=== PATIENT | male | born 1970 | race Caucasian/White ===

== ENCOUNTER 2017-03-31 19:06 | Emergency (ER) | payer BC, OTHER ==
[~2017-03-31] VITALS: Ht 177.8 cm; Wt 113.4 kg
[2017-03-31 19:39] VITALS: BP 118/97
[2017-03-31 20:52] LABS: Basophils # (auto) 0 uL; Eosinophils # (auto) 0.1 uL; Eosinophils % (auto) 1.7 % (0.0-7.0); Nucleated Red Blood Cells % 0.1 %
[2017-03-31 20:54] LABS: Basophils % (auto) 0.5 % (0.0-2.0); Hematocrit 44.9 % (41.0-53.0); Hemoglobin 15.5 g/dL (13.5-17.5); Lymphocytes % (auto) 33.1 % (10.0-50.0); Mean Corpuscular Hemoglobin 34.8 pg (28.0-32.0); Mean Corpuscular Hgb Conc. 34.4 g/dL (32.0-36.0); Monocytes # (auto) 0.4 uL; Monocytes % (auto) 7.2 % (0.0-12.0); Neutrophils # (auto) 3.4 uL; Neutrophils % (auto) 57.5 % (37.0-80.0); Platelet Count (auto) 242 10^3/uL (140-450); Red Blood Cells 4.45 10^6/uL (4.5-5.90); Red Cell Distribution Width 13.2 % (11.8-14.3)
[2017-03-31 20:57] LABS: Albumin 3.8 g/dL (3.4-5.0); Calcium 8.7 mg/dL (8.5-10.1); Potassium 3.7 mmol/L (3.5-5.1)
[2017-03-31 20:59] LABS: Total Protein 8.1 g/dL (6.4-8.2)
== END 2017-04-01 05:25 | disposition left against medical advice (07) ==
LOC: ER 19:06
DX: M79.604 Pain in right leg (principal); Z53.21 Procedure and treatment not carried out due to patient leaving prior to being seen by health care provider
CPT/HCPCS: 36415; 80053; 85025; 93971

== ENCOUNTER 2017-04-03 10:40 | Emergency (ER) | payer BC, OTHER ==
[~2017-04-03] VITALS: Ht 177.8 cm; Wt 113.4 kg
[2017-04-03 11:03] VITALS: BP 121/92
[2017-04-03] MEDS ORDERED: cefTRIAXone SOD 1,000 MG VL IM ONE (11:45)
[2017-04-03] MEDS ORDERED: TETANUS-DIPTH-ACEL PERTUSSIS 0.5ML SYRG IM ONE (11:45)
[2017-04-03] MEDS ORDERED: LIDOCAINE 1% HCL (LOCAL ANESTH.) INJ 20ML MDV IJ ONE (11:45)
== END 2017-04-03 12:08 | disposition home or self-care (01) ==
LOC: ER 10:40
DX: L03.115 Cellulitis of right lower limb (principal); Z88.0 Allergy status to penicillin
CPT/HCPCS: 90471; 90715; 96372; 99284; J0696; J2001

== ENCOUNTER → 2017-12-13 | Outpatient (CLI) | payer BC ==
[2017-12-13 11:14] LABS: BUN/Creatinine Ratio 5.4; Bilirubin, Total 8.6 mg/dL (0.2-1.0); Calcium 8.3 mg/dL (8.5-10.1); Magnesium 1.7 mg/dL (1.6-2.6); Potassium 3.7 mmol/L (3.5-5.1); Total Protein 8.2 g/dL (6.4-8.2)
[2017-12-13 11:21] LABS: Folate (Folic Acid) 9.45 ng/mL (5.38-24)
[2017-12-14 10:22] LABS: Hepatitis A Ab IgM Negative; Hepatitis B Core IgM Negative
[2017-12-14 10:23] LABS: Hepatitis B Surface Antigen Negative (Negative); Hepatitis C Antibody Negative (Negative)
== END | disposition home or self-care (01) ==
LOC: LAB 10:21
PROVIDERS: ATTEND Internal Medicine
DX: F10.10 Alcohol abuse, uncomplicated (principal); F41.9 Anxiety disorder, unspecified; Z68.36 Body mass index [BMI] 36.0-36.9, adult
CPT/HCPCS: 36415; 80053; 80061; 80074; 82607; 82746; 83036; 83735; 84403; 84443

== ENCOUNTER → 2017-12-21 | Outpatient (CLI) | payer BC ==
[2017-12-21 12:06] LABS: Basophils # (auto) 0 uL; Eosinophils # (auto) 0.1 uL; Lymphocytes # (auto) 0.7 uL; Monocytes # (auto) 0.5 uL; Neutrophils # (auto) 4.7 uL; Red Blood Cells 3.27 10^6/uL (4.5-5.90)
[2017-12-21 12:08] LABS: Basophils % (auto) 0.2 % (0.0-2.0); Hematocrit 35.1 % (41.0-53.0); Hemoglobin 11.8 g/dL (13.5-17.5); Lymphocytes % (auto) 12.5 % (10.0-50.0); Mean Corpuscular Hemoglobin 36.1 pg (28.0-32.0); Mean Corpuscular Hgb Conc. 33.7 g/dL (32.0-36.0); Mean Corpuscular Volume 107.1 fL (80.0-100.0); Monocytes % (auto) 8.2 % (0.0-12.0); Neutrophils % (auto) 78.1 % (37.0-80.0); Nucleated Red Blood Cells % 0.2 %; Platelet Count (auto) 156 10^3/uL (140-450); Red Cell Distribution Width 16.5 % (11.8-14.3)
[2017-12-21 12:15] LABS: INR 1.3 (0.9-1.15); Partial Thromboplastin Time 32.2 sec (23.78-33.04); Prothrombin Time 13.7 sec (9.27-12.13)
[2017-12-21 13:14] LABS: Albumin 2.8 g/dL (3.4-5.0); BUN/Creatinine Ratio 6.3; Bilirubin, Total 12.3 mg/dL (0.2-1.0); Potassium 3.7 mmol/L (3.5-5.1); Total Protein 8.3 g/dL (6.4-8.2)
== END | disposition home or self-care (01) ==
LOC: LAB 11:00
PROVIDERS: ATTEND Internal Medicine
DX: F10.10 Alcohol abuse, uncomplicated (principal)
CPT/HCPCS: 36415; 80053; 85025; 85610; 85730

== ENCOUNTER 2018-01-26 11:11 | Inpatient (IN) | payer BC, OTHER ==
[~2018-01-26] VITALS: Ht 177.8 cm; Wt 117.0 kg
[2018-01-26 12:33] LABS: Eosinophils # (auto) 0.1 uL; Hematocrit 26.1 % (41.0-53.0); Hemoglobin 9.1 g/dL (13.5-17.5); Red Blood Cells 2.34 10^6/uL (4.5-5.90); Red Cell Distribution Width 19.4 % (11.8-14.3)
[2018-01-26 12:36] LABS: Basophils # (auto) 0.1 uL; Basophils % (auto) 0.6 % (0.0-2.0); Eosinophils % (auto) 0.5 % (0.0-7.0); Lymphocytes # (auto) 0.7 uL; Lymphocytes % (auto) 4.3 % (10.0-50.0); Mean Corpuscular Hemoglobin 38.7 pg (28.0-32.0); Mean Corpuscular Hgb Conc. 34.6 g/dL (32.0-36.0); Mean Corpuscular Volume 111.6 fL (80.0-100.0); Monocytes # (auto) 1.5 uL; Monocytes % (auto) 9.7 % (0.0-12.0); Neutrophils % (auto) 84.9 % (37.0-80.0); Platelet Count (auto) 171 10^3/uL (140-450); White Blood Cell 15.4 10^3/uL (4.4-10.8)
[2018-01-26 12:40] LABS: INR 1.62 (0.9-1.15); Partial Thromboplastin Time 35.5 sec (23.78-33.04); Prothrombin Time 16.9 sec (9.27-12.13)
[2018-01-26 13:19] LABS: Albumin 2.2 g/dL (3.4-5.0); Anion Gap 16 (5-15); Blood Urea Nitrogen 44 mg/dL (7-18); Calcium 7.9 mg/dL (8.5-10.1); Carbon Dioxide 20 mmol/L (21-32); Chloride 84 mmol/L (98-107); Glucose 144 mg/dL (74-106); Lipase 469 U/L (73-393); Magnesium 2.4 mg/dL (1.6-2.6); Sodium 120 mmol/L (136-145)
[2018-01-26 13:27] LABS: Potassium 2.9 mmol/L (3.5-5.1)
[2018-01-26 13:34] LABS: Alanine Aminotransferase 62 U/L (16-61); Alkaline Phosphatase 119 U/L (45-117); Amylase 33 U/L (25-115); Aspartate Aminotransferase 144 U/L (15-37); BUN/Creatinine Ratio 9.8; Blood Alcohol < 3.0 mg/dL (0-5); GFR African American 18 mL/min; GFR Non-African American 15 mL/min
[2018-01-26 13:36] LABS: Total Protein 6.6 g/dL (6.4-8.2)
[2018-01-26 13:37] LABS: Bilirubin, Total 35.5 mg/dL (0.2-1.0)
[2018-01-26] MEDS ORDERED: SODIUM CHLORIDE 0.9% 1,000 ML IV SCH (13:42)
[2018-01-26] MEDS ORDERED: ONDANSETRON HCL 4 MG/2 ML VIAL IV PRN (13:45)
[2018-01-26] MEDS ORDERED: THIAMINE 100mg/ml INJ (200mg/2ml VIAL) IV ONE (13:45)
[2018-01-26] MEDS ORDERED: LACTULOSE 20Gm/30ML SOLN PO PRN (13:45)
[2018-01-26] MEDS ORDERED: POTASSIUM EFFERVESENT TAB 25 MEQ PO ONE (13:45)
[2018-01-26] MEDS ORDERED: LACTULOSE 20Gm/30ML SOLN PO ONE (13:45)
[2018-01-26] MEDS ORDERED: PANTOPRAZOLE 40 MG/10 ML VIAL IV ONE (13:45)
[2018-01-26] MEDS ORDERED: NITROGLYCERIN 0.4 MG SL TAB SL PRN (13:45)
[2018-01-26] MEDS ORDERED: MORPHINE SULFATE 4 MG/ML SYR/VIAL IV PRN ×3 (13:45)
[2018-01-26] MEDS ORDERED: cefTRIAXone 1GM/50ML D5W 50 ML IV ONE (13:45)
[2018-01-26] MEDS ORDERED: chlordiazePOXIDE HCL 25 MG CAP PO PRN ×2 (13:45→15:00)
[2018-01-26] MEDS ORDERED: LORazepam 0.5 MG TAB PO PRN (13:45)
[2018-01-26] MEDS ORDERED: TEMAZEPAM 15 MG CAP PO PRN (13:45)
[2018-01-26 15:30] VITALS: BP 99/56
[2018-01-26] MEDS: PHYTONADIONE ORAL Susp 10 mg/10ml PO SCH (16:01)
[2018-01-26] MEDS: POTASSIUM CHL 20MEQ/100ML 100 ML IV SCH ×2 (16:01→18:50)
[2018-01-26] MEDS: LACTULOSE 20Gm/30ML SOLN PO SCH ×2 (17:19→23:56)
[2018-01-26] MEDS: chlordiazePOXIDE HCL 5 MG CAP PO SCH ×2 (17:20→23:56)
[2018-01-26 17:55] VITALS: BP 99/56
[2018-01-26 18:13] LABS: Hemoglobin 8.8 g/dL (13.5-17.5)
[2018-01-26] MEDS: metroNIDAZOLE 500MG/100ML 100 ML IV SCH ×2 (19:54→21:00)
[2018-01-26] MEDS: LORazepam 0.5 MG TAB PO PRN (20:03)
[2018-01-26] MEDS: PANTOPRAZOLE 40 MG TAB PO SCH (21:37)
[2018-01-26 21:46] VITALS: BP 103/60
[2018-01-26 22:27] LABS: Urine Bacteria FEW /hpf (None Seen); Urine Blood Negative /uL (Negative); Urine Hyaline Cast FEW /lpf (0 - 2); Urine Mucus FEW (None Seen); Urine Specific Gravity 1.016 (1.001-1.035); Urine WBC 2 /hpf (0 - 3)
[2018-01-26 22:33] LABS: Creatinine, Urine 249 mg/dL (30.0-125.0); Sodium Urine 6 mmol/L (40-220)
[2018-01-27] VITALS (7 sets, daily range): BP systolic 91–138; BP diastolic 38–81
[2018-01-27 00:37] LABS: Hemoglobin 8.3 g/dL (13.5-17.5)
[2018-01-27] MEDS: LACTULOSE 20Gm/30ML SOLN PO SCH ×7 (02:26→22:00)
[2018-01-27] MEDS: metroNIDAZOLE 500MG/100ML 100 ML IV SCH ×4 (02:27→21:10)
[2018-01-27 05:22] LABS: Basophils # (auto) 0.1 uL; Basophils % (auto) 0.5 % (0.0-2.0); Eosinophils # (auto) 0.1 uL; Eosinophils % (auto) 0.7 % (0.0-7.0); Hematocrit 23.6 % (41.0-53.0); Hemoglobin 8.5 g/dL (13.5-17.5); Lymphocytes # (auto) 0.6 uL; Lymphocytes % (auto) 4.8 % (10.0-50.0); Mean Corpuscular Hemoglobin 39.8 pg (28.0-32.0); Mean Corpuscular Volume 110.6 fL (80.0-100.0); Monocytes # (auto) 1.1 uL; Neutrophils # (auto) 10.5 uL; Platelet Count (auto) 139 10^3/uL (140-450); Red Blood Cells 2.14 10^6/uL (4.5-5.90); Red Cell Distribution Width 19.1 % (11.8-14.3); White Blood Cell 12.3 10^3/uL (4.4-10.8)
[2018-01-27 05:34] LABS: INR 1.64 (0.9-1.15); Partial Thromboplastin Time 35.4 sec (23.78-33.04); Prothrombin Time 17.1 sec (9.27-12.13)
[2018-01-27 05:47] LABS: Alanine Aminotransferase 57 U/L (16-61); Anion Gap 13 (5-15); Aspartate Aminotransferase 128 U/L (15-37); Blood Urea Nitrogen 51 mg/dL (7-18); Calcium 7.8 mg/dL (8.5-10.1); Carbon Dioxide 19 mmol/L (21-32); Chloride 90 mmol/L (98-107); Glucose 133 mg/dL (74-106); Lipase 338 U/L (73-393); Potassium 3.2 mmol/L (3.5-5.1); Sodium 122 mmol/L (136-145)
[2018-01-27 06:00] LABS: Alkaline Phosphatase 104 U/L (45-117); Amylase 28 U/L (25-115); BUN/Creatinine Ratio 10.8; Bilirubin, Total 30.8 mg/dL (0.2-1.0); Cholesterol < 50 mg/dL (< 200); GFR African American 17 mL/min; GFR Non-African American 14 mL/min; HDL Cholesterol 12 mg/dL (40-59); LDL Cholesterol 66 mg/dL (< 100); Triglycerides 259 mg/dL (< 150)
[2018-01-27 06:03] LABS: Total Protein 6.4 g/dL (6.4-8.2)
[2018-01-27] MEDS: chlordiazePOXIDE HCL 5 MG CAP PO SCH ×4 (06:16→22:37)
[2018-01-27] MEDS: cefTRIAXone 1GM/50ML D5W 50 ML IV SCH (09:19)
[2018-01-27] MEDS: THIAMINE 100mg/ml INJ (200mg/2ml VIAL) IV SCH (09:20)
[2018-01-27] MEDS: PANTOPRAZOLE 40 MG TAB PO SCH ×2 (09:21→22:37)
[2018-01-27] MEDS: PHYTONADIONE ORAL Susp 10 mg/10ml PO SCH (09:21)
[2018-01-27] MEDS ORDERED: PANTOPRAZOLE 40 MG TAB PO SCH (10:00)
[2018-01-27] MEDS ORDERED: POTASSIUM EFFERVESENT TAB 25 MEQ PO ONE (10:30)
[2018-01-27] MEDS: ALBUMIN 25% 100 ML IV SCH ×2 (10:42→18:01)
[2018-01-27] MEDS: SODIUM BICARBONATE 650 MG TAB PO SCH ×2 (11:22→22:36)
[2018-01-27] MEDS: MIDODRINE HCL 10 MG TAB PO SCH ×2 (11:23→18:01)
[2018-01-27] MEDS: FOLIC ACID 1 MG in D5W 5% 50 ML IV SCH (12:09)
[2018-01-27] MEDS: MULTIPLE VITAMINS W/ MINERALS TAB PO SCH (12:09)
[2018-01-27] MEDS: NIACIN 100 MG TAB PO SCH (12:09)
[2018-01-27 19:03] LABS: Calcium 7.6 mg/dL (8.5-10.1); Potassium 3.5 mmol/L (3.5-5.1)
[2018-01-27] MEDS: LORazepam 0.5 MG TAB PO PRN (21:10)
[2018-01-28] VITALS (13 sets, daily range): BP systolic 87–110; BP diastolic 45–67
[2018-01-28] MEDS: LACTULOSE 20Gm/30ML SOLN PO SCH ×6 (02:00→22:00)
[2018-01-28] MEDS: ALBUMIN 25% 100 ML IV SCH ×3 (02:29→20:48)
[2018-01-28] MEDS: metroNIDAZOLE 500MG/100ML 100 ML IV SCH ×4 (02:36→20:56)
[2018-01-28] MEDS: chlordiazePOXIDE HCL 5 MG CAP PO SCH ×4 (05:31→22:04)
[2018-01-28] MEDS: MIDODRINE HCL 10 MG TAB PO SCH ×3 (05:31→17:48)
[2018-01-28 06:15] LABS: Basophils # (auto) 0.1 uL; Hemoglobin 7.4 g/dL (13.5-17.5); Monocytes # (auto) 1.3 uL; Neutrophils % (auto) 79.8 % (37.0-80.0); Nucleated Red Blood Cells % 0.1 %
[2018-01-28 06:17] LABS: Basophils % (auto) 0.7 % (0.0-2.0); Eosinophils # (auto) 0.2 uL; Eosinophils % (auto) 1.7 % (0.0-7.0); Hematocrit 20.5 % (41.0-53.0); Lymphocytes % (auto) 7.7 % (10.0-50.0); Mean Corpuscular Hemoglobin 40.4 pg (28.0-32.0); Mean Corpuscular Hgb Conc. 35.9 g/dL (32.0-36.0); Mean Corpuscular Volume 112.3 fL (80.0-100.0); Monocytes % (auto) 10.1 % (0.0-12.0); Neutrophils # (auto) 9.9 uL; Platelet Count (auto) 133 10^3/uL (140-450); Red Blood Cells 1.83 10^6/uL (4.5-5.90); Red Cell Distribution Width 19.1 % (11.8-14.3); White Blood Cell 12.5 10^3/uL (4.4-10.8)
[2018-01-28 06:21] LABS: Albumin 2.6 g/dL (3.4-5.0); Calcium 7.8 mg/dL (8.5-10.1); Magnesium 2.5 mg/dL (1.6-2.6); Potassium 3.2 mmol/L (3.5-5.1)
[2018-01-28 06:38] LABS: BUN/Creatinine Ratio 11.7; Bilirubin, Total 32.6 mg/dL (0.2-1.0)
[2018-01-28 06:42] LABS: Total Protein 6.4 g/dL (6.4-8.2)
[2018-01-28] MEDS: THIAMINE 100mg/ml INJ (200mg/2ml VIAL) IV SCH (09:40)
[2018-01-28] MEDS: MULTIPLE VITAMINS W/ MINERALS TAB PO SCH (09:41)
[2018-01-28] MEDS: SODIUM BICARBONATE 650 MG TAB PO SCH ×2 (09:41→22:04)
[2018-01-28] MEDS: PANTOPRAZOLE 40 MG TAB PO SCH ×2 (09:41→22:04)
[2018-01-28] MEDS: FOLIC ACID 1 MG in D5W 5% 50 ML IV SCH (09:41)
[2018-01-28] MEDS: NIACIN 100 MG TAB PO SCH (09:41)
[2018-01-28] MEDS: PHYTONADIONE ORAL Susp 10 mg/10ml PO SCH (09:41)
[2018-01-28] MEDS: cefTRIAXone 1GM/50ML D5W 50 ML IV SCH (09:42)
[2018-01-28] MEDS ORDERED: GOLYTELY 4L KIT PO ONE (12:00)
[2018-01-28] MEDS: POTASSIUM CHL 20MEQ/100ML 100 ML IV SCH ×2 (15:45→18:04)
[2018-01-28] MEDS: OCTREOTIDE ACETATE 100 MCG/ML VL SUBCUT SCH ×2 (15:46→22:04)
[2018-01-29] VITALS (19 sets, daily range): BP systolic 85–125; BP diastolic 43–63
[2018-01-29] MEDS: LACTULOSE 20Gm/30ML SOLN PO SCH ×6 (02:00→21:46)
[2018-01-29] MEDS: metroNIDAZOLE 500MG/100ML 100 ML IV SCH ×4 (02:58→20:43)
[2018-01-29] MEDS: ALBUMIN 25% 100 ML IV SCH (04:32)
[2018-01-29] MEDS ORDERED: GOLYTELY 4L KIT PO ONE (05:00)
[2018-01-29] MEDS: chlordiazePOXIDE HCL 5 MG CAP PO SCH ×4 (05:46→21:46)
[2018-01-29] MEDS: MIDODRINE HCL 10 MG TAB PO SCH ×4 (05:46→18:38)
[2018-01-29] MEDS: OCTREOTIDE ACETATE 100 MCG/ML VL SUBCUT SCH ×3 (05:47→22:26)
[2018-01-29 06:33] LABS: Basophils # (auto) 0.2 uL; Neutrophils # (auto) 10.5 uL; Nucleated Red Blood Cells % 0.1 %; Red Blood Cells 1.77 10^6/uL (4.5-5.90); White Blood Cell 13.2 10^3/uL (4.4-10.8)
[2018-01-29 06:34] LABS: Basophils % (auto) 1.7 % (0.0-2.0); Eosinophils # (auto) 0.3 uL; Eosinophils % (auto) 2.1 % (0.0-7.0); Lymphocytes % (auto) 7.7 % (10.0-50.0); Mean Corpuscular Hemoglobin 39.9 pg (28.0-32.0); Mean Corpuscular Hgb Conc. 35.2 g/dL (32.0-36.0); Mean Corpuscular Volume 113.3 fL (80.0-100.0); Monocytes # (auto) 1.2 uL; Monocytes % (auto) 8.8 % (0.0-12.0); Neutrophils % (auto) 79.7 % (37.0-80.0); Platelet Count (auto) 123 10^3/uL (140-450); Red Cell Distribution Width 19.7 % (11.8-14.3)
[2018-01-29 06:38] LABS: INR 1.69 (0.9-1.15); Prothrombin Time 17.6 sec (9.27-12.13)
[2018-01-29 06:43] LABS: Potassium 3.4 mmol/L (3.5-5.1)
[2018-01-29 06:47] LABS: BUN/Creatinine Ratio 10.4; Calcium 7.7 mg/dL (8.5-10.1)
[2018-01-29] MEDS ORDERED: SODIUM CHLORIDE LOCK 10 ML ONE (08:24)
[2018-01-29] MEDS ORDERED: MIDAZOLAM HCL 5 MG/ML-1ML VIAL ONE (08:24)
[2018-01-29] MEDS ORDERED: fentaNYL CITRATE 100 MCG/2 ML VL ONE ×2 (08:24→16:04)
[2018-01-29] MEDS ORDERED: LIDOCAINE VISCOUS 2% 15ML UD ONE (08:24)
[2018-01-29] MEDS ORDERED: diphenhdrAMINE 50mg/ml (500mg/10ml VIAL) ONE (08:24)
[2018-01-29] MEDS ORDERED: ACETAMINOPHEN 500 MG TAB PO ONE (09:45)
[2018-01-29] MEDS ORDERED: FUROSEMIDE 20 MG/2 ML VIAL IV ONE (10:15)
[2018-01-29] MEDS ORDERED: POTASSIUM CHL 20 Meq TABLET PO ONE (10:15)
[2018-01-29] MEDS: NIACIN 100 MG TAB PO SCH (11:09)
[2018-01-29] MEDS: cefTRIAXone 1GM/50ML D5W 50 ML IV SCH (11:09)
[2018-01-29] MEDS: PANTOPRAZOLE 40 MG TAB PO SCH (11:09)
[2018-01-29] MEDS: SODIUM BICARBONATE 650 MG TAB PO SCH ×2 (11:09→21:46)
[2018-01-29] MEDS: THIAMINE 100mg/ml INJ (200mg/2ml VIAL) IV SCH (11:10)
[2018-01-29] MEDS: MULTIPLE VITAMINS W/ MINERALS TAB PO SCH (11:10)
[2018-01-29] MEDS: PHYTONADIONE ORAL Susp 10 mg/10ml PO SCH (11:15)
[2018-01-29] MEDS: FOLIC ACID 1 MG in D5W 5% 50 ML IV SCH (11:22)
[2018-01-29 12:49] LABS: Hepatitis A Ab IgM Negative; Hepatitis B Surface Antigen Negative (Negative); Hepatitis C Antibody Negative (Negative)
[2018-01-29] MEDS ORDERED: MORPHINE SULFATE 4 MG/ML SYR/VIAL IV PRN ×3 (13:15)
[2018-01-29 14:22] LABS: Bilirubin, Direct 26.8 mg/dL (0-0.2)
[2018-01-29 14:31] LABS: Bilirubin, Total 33.7 mg/dL (0.2-1.0)
[2018-01-29] MEDS ORDERED: MIDAZOLAM HCL 1MG/1ML-2 ML VIAL ONE (16:04)
[2018-01-29] MEDS ORDERED: LIDOCAINE 2%HCL (LOCAL ANESTH.) INJ 20ML MDV ONE (16:04)
[2018-01-29] MEDS ORDERED: HEPARIN SODIUM (PORCINE) 5000 UNITS/ML 1ML VIAL ONE (16:46)
[2018-01-29] MEDS: PANTOPRAZOLE 40 MG/10 ML VIAL IV SCH (21:46)
[2018-01-29] MEDS ORDERED: OCTREOTIDE ACETATE 100 MCG/ML VL ONE (22:22)
[2018-01-30] VITALS (61 sets, daily range): BP systolic 85–134; BP diastolic 39–97
[2018-01-30] MEDS: LACTULOSE 20Gm/30ML SOLN PO SCH ×6 (02:00→22:01)
[2018-01-30] MEDS: metroNIDAZOLE 500MG/100ML 100 ML IV SCH ×4 (03:06→21:38)
[2018-01-30 05:09] LABS: Basophils # (auto) 0.1 uL; Eosinophils # (auto) 0.2 uL; Lymphocytes # (auto) 0.8 uL; Nucleated Red Blood Cells % 0.1 %
[2018-01-30 05:12] LABS: Basophils % (auto) 0.7 % (0.0-2.0); Eosinophils % (auto) 1.3 % (0.0-7.0); Hematocrit 23.3 % (41.0-53.0); Hemoglobin 8.3 g/dL (13.5-17.5); Lymphocytes % (auto) 5.6 % (10.0-50.0); Mean Corpuscular Hemoglobin 37.5 pg (28.0-32.0); Mean Corpuscular Hgb Conc. 35.4 g/dL (32.0-36.0); Mean Corpuscular Volume 106.1 fL (80.0-100.0); Monocytes # (auto) 1.3 uL; Monocytes % (auto) 8.8 % (0.0-12.0); Neutrophils # (auto) 12.1 uL; Neutrophils % (auto) 83.6 % (37.0-80.0); White Blood Cell 14.4 10^3/uL (4.4-10.8)
[2018-01-30 05:19] LABS: Platelet Count (auto) 116 10^3/uL (140-450); Red Cell Distribution Width 24.8 % (11.8-14.3)
[2018-01-30 05:21] LABS: INR 1.77 (0.9-1.15); Prothrombin Time 18.3 sec (9.27-12.13)
[2018-01-30 05:28] LABS: Albumin 2.9 g/dL (3.4-5.0); Calcium 7.4 mg/dL (8.5-10.1); Potassium 3.5 mmol/L (3.5-5.1)
[2018-01-30 05:33] LABS: BUN/Creatinine Ratio 10.3
[2018-01-30] MEDS ORDERED: OCTREOTIDE ACETATE 100 MCG/ML VL ONE (05:34)
[2018-01-30 05:42] LABS: Bilirubin, Total 33.5 mg/dL (0.2-1.0)
[2018-01-30] MEDS: OCTREOTIDE ACETATE 100 MCG/ML VL SUBCUT SCH ×3 (06:01→22:01)
[2018-01-30] MEDS: MIDODRINE HCL 10 MG TAB PO SCH ×3 (06:01→17:53)
[2018-01-30] MEDS: chlordiazePOXIDE HCL 5 MG CAP PO SCH ×4 (06:01→22:01)
[2018-01-30 06:18] LABS: Total Protein 6.6 g/dL (6.4-8.2)
[2018-01-30] MEDS ORDERED: NOREPINEPHRINE 8 MG/250ML KIT 250 ML IV ONE (09:18)
[2018-01-30] MEDS: NOREPINEPHRINE 8 MG/250ML KIT 250 ML IV SCH (09:39)
[2018-01-30] MEDS: NIACIN 100 MG TAB PO SCH (09:40)
[2018-01-30] MEDS: MULTIPLE VITAMINS W/ MINERALS TAB PO SCH ×2 (09:40→12:45)
[2018-01-30] MEDS: SODIUM BICARBONATE 650 MG TAB PO SCH ×2 (09:40→22:01)
[2018-01-30] MEDS: PHYTONADIONE ORAL Susp 10 mg/10ml PO SCH (09:41)
[2018-01-30] MEDS ORDERED: SODIUM CHL 0.9% 1000 ML BAG XX ONE (10:45)
[2018-01-30] MEDS ORDERED: EPOETIN ALFA 10,000 UNIT/1 ML VIAL IV ONE (10:45)
[2018-01-30] MEDS: THIAMINE 100mg/ml INJ (200mg/2ml VIAL) IV SCH (12:38)
[2018-01-30] MEDS: PANTOPRAZOLE 40 MG/10 ML VIAL IV SCH ×2 (12:38→22:01)
[2018-01-30] MEDS: cefTRIAXone 1GM/50ML D5W 50 ML IV SCH (12:41)
[2018-01-30] MEDS: FOLIC ACID 1 MG in D5W 5% 50 ML IV SCH (13:36)
[2018-01-30] MEDS: LORazepam 0.5 MG TAB PO PRN (15:20)
[2018-01-31] VITALS (82 sets, daily range): BP systolic 85–121; BP diastolic 36–62
[2018-01-31] MEDS: metroNIDAZOLE 500MG/100ML 100 ML IV SCH ×4 (02:31→21:06)
[2018-01-31] MEDS: LACTULOSE 20Gm/30ML SOLN PO SCH ×5 (02:31→22:02)
[2018-01-31 04:03] LABS: Basophils # (auto) 0.2 uL; Basophils % (auto) 0.9 % (0.0-2.0); Eosinophils # (auto) 0.1 uL; Eosinophils % (auto) 0.9 % (0.0-7.0); Hematocrit 23.5 % (41.0-53.0); Hemoglobin 8.2 g/dL (13.5-17.5); Lymphocytes # (auto) 1.1 uL; Lymphocytes % (auto) 6.3 % (10.0-50.0); Mean Corpuscular Hemoglobin 37.2 pg (28.0-32.0); Mean Corpuscular Hgb Conc. 34.7 g/dL (32.0-36.0); Mean Corpuscular Volume 107.2 fL (80.0-100.0); Monocytes # (auto) 1.6 uL; Monocytes % (auto) 9.6 % (0.0-12.0); Neutrophils # (auto) 14.1 uL; Neutrophils % (auto) 82.3 % (37.0-80.0); Nucleated Red Blood Cells % 0.1 %; Platelet Count (auto) 83 10^3/uL (140-450); Red Blood Cells 2.19 10^6/uL (4.5-5.90); White Blood Cell 17.1 10^3/uL (4.4-10.8)
[2018-01-31 04:21] LABS: BUN/Creatinine Ratio 9.9; Potassium 3.5 mmol/L (3.5-5.1)
[2018-01-31 04:22] LABS: Albumin 2.7 g/dL (3.4-5.0); Bilirubin, Total 30.9 mg/dL (0.2-1.0); Calcium 7.5 mg/dL (8.5-10.1); Total Protein 6.4 g/dL (6.4-8.2)
[2018-01-31 04:29] LABS: Red Cell Distribution Width 25.7 % (11.8-14.3)
[2018-01-31] MEDS: chlordiazePOXIDE HCL 5 MG CAP PO SCH ×4 (06:16→22:02)
[2018-01-31] MEDS: OCTREOTIDE ACETATE 100 MCG/ML VL SUBCUT SCH ×3 (06:16→22:03)
[2018-01-31] MEDS: MIDODRINE HCL 10 MG TAB PO SCH ×3 (06:17→18:22)
[2018-01-31] MEDS ORDERED: SODIUM CHL 0.9% 1000 ML BAG XX ONE (07:30)
[2018-01-31] MEDS: cefTRIAXone 1GM/50ML D5W 50 ML IV SCH (09:22)
[2018-01-31] MEDS: NOREPINEPHRINE 8 MG/250ML KIT 250 ML IV SCH (09:30)
[2018-01-31] MEDS: NIACIN 100 MG TAB PO SCH (10:00)
[2018-01-31] MEDS: PHYTONADIONE ORAL Susp 10 mg/10ml PO SCH (10:00)
[2018-01-31] MEDS: THIAMINE 100mg/ml INJ (200mg/2ml VIAL) IV SCH (10:41)
[2018-01-31] MEDS: MULTIPLE VITAMINS W/ MINERALS TAB PO SCH (10:42)
[2018-01-31] MEDS: PANTOPRAZOLE 40 MG/10 ML VIAL IV SCH ×2 (10:42→22:01)
[2018-01-31] MEDS: SODIUM BICARBONATE 650 MG TAB PO SCH ×2 (10:42→22:02)
[2018-01-31 10:58] LABS: INR 2.04 (0.9-1.15)
[2018-02-01] VITALS (97 sets, daily range): BP systolic 78–139; BP diastolic 36–78
[2018-02-01] MEDS: metroNIDAZOLE 500MG/100ML 100 ML IV SCH ×2 (02:51→12:19)
[2018-02-01] MEDS: LACTULOSE 20Gm/30ML SOLN PO SCH ×2 (04:13→12:19)
[2018-02-01 04:57] LABS: Eosinophils # (auto) 0.2 uL; Eosinophils % (auto) 1.1 % (0.0-7.0); Lymphocytes # (auto) 1.3 uL; Monocytes # (auto) 1.7 uL; Nucleated Red Blood Cells % 0.1 %; White Blood Cell 19.1 10^3/uL (4.4-10.8)
[2018-02-01 04:59] LABS: Basophils # (auto) 0 uL; Basophils % (auto) 0.3 % (0.0-2.0); Hematocrit 23.3 % (41.0-53.0); Hemoglobin 8.2 g/dL (13.5-17.5); Lymphocytes % (auto) 6.6 % (10.0-50.0); Mean Corpuscular Hemoglobin 37.7 pg (28.0-32.0); Mean Corpuscular Hgb Conc. 35.2 g/dL (32.0-36.0); Mean Corpuscular Volume 107.3 fL (80.0-100.0); Monocytes % (auto) 8.9 % (0.0-12.0); Neutrophils # (auto) 15.9 uL; Neutrophils % (auto) 83.1 % (37.0-80.0); Platelet Count (auto) 56 10^3/uL (140-450); Red Blood Cells 2.17 10^6/uL (4.5-5.90)
[2018-02-01 05:09] LABS: Red Cell Distribution Width 25.9 % (11.8-14.3)
[2018-02-01 05:15] LABS: INR 2.06 (0.9-1.15); Prothrombin Time 21.2 sec (9.27-12.13)
[2018-02-01 05:18] LABS: Albumin 2.5 g/dL (3.4-5.0); Calcium 7.5 mg/dL (8.5-10.1); Potassium 3.4 mmol/L (3.5-5.1)
[2018-02-01 05:32] LABS: BUN/Creatinine Ratio 9.3; Bilirubin, Total 28.9 mg/dL (0.2-1.0)
[2018-02-01 05:43] LABS: Total Protein 6.2 g/dL (6.4-8.2)
[2018-02-01] MEDS: MIDODRINE HCL 10 MG TAB PO SCH ×2 (05:50→12:17)
[2018-02-01] MEDS: chlordiazePOXIDE HCL 5 MG CAP PO SCH ×2 (05:51→12:18)
[2018-02-01] MEDS: OCTREOTIDE ACETATE 100 MCG/ML VL SUBCUT SCH (05:51)
[2018-02-01] MEDS ORDERED: SODIUM CHLORIDE LOCK 10 ML ONE (08:37)
[2018-02-01] MEDS ORDERED: EPINEPHrine HCL 1 MG/10 ML SYRG ONE (08:37)
[2018-02-01] MEDS ORDERED: LIDOCAINE VISCOUS 2% 15ML UD ONE (08:38)
[2018-02-01] MEDS ORDERED: fentaNYL CITRATE 100 MCG/2 ML VL ONE (08:38)
[2018-02-01] MEDS ORDERED: MIDAZOLAM HCL 5 MG/ML-1ML VIAL ONE (08:38)
[2018-02-01] MEDS ORDERED: diphenhdrAMINE 50mg/ml (500mg/10ml VIAL) ONE (08:38)
[2018-02-01] MEDS ORDERED: EPOETIN ALFA 10,000 UNIT/1 ML VIAL IV ONE (08:45)
[2018-02-01] MEDS ORDERED: FOLIC ACID 1 MG TAB PO SCH (10:00)
[2018-02-01] MEDS ORDERED: THIAMINE HCL 100 MG TAB PO SCH (10:00)
[2018-02-01] MEDS: PANTOPRAZOLE 40 MG/10 ML VIAL IV SCH ×2 (12:17→21:47)
[2018-02-01] MEDS: SODIUM BICARBONATE 650 MG TAB PO SCH (12:18)
[2018-02-01] MEDS: MULTIPLE VITAMINS W/ MINERALS TAB PO SCH (12:18)
[2018-02-01] MEDS: PHYTONADIONE ORAL Susp 10 mg/10ml PO SCH (12:45)
[2018-02-01] MEDS: NIACIN 100 MG TAB PO SCH (12:45)
[2018-02-01] MEDS: NOREPINEPHRINE 8 MG/250ML KIT 250 ML IV SCH (15:39)
[2018-02-02] VITALS (56 sets, daily range): BP systolic 67–120; BP diastolic 32–67
[2018-02-02] MEDS: NOREPINEPHRINE 8 MG/250ML KIT 250 ML IV SCH (03:01)
[2018-02-02] MEDS: LORazepam 2MG/ML-1ML VIAL IV PRN ×2 (09:41→14:48)
[2018-02-02] MEDS: HYDROmorphone HCL 2 MG/ML VL IV PRN ×2 (16:25→20:35)
[2018-02-03] VITALS (17 sets, daily range): BP systolic 70–116; BP diastolic 35–68
[2018-02-03] MEDS: HYDROmorphone HCL 2 MG/ML VL IV PRN ×5 (03:42→23:43)
[2018-02-04] MEDS: HYDROmorphone HCL 2 MG/ML VL IV PRN ×4 (03:03→14:07)
[2018-02-04 04:35] VITALS: BP 101/62
[2018-02-04 08:30] VITALS: BP 113/64
[2018-02-04 16:21] VITALS: BP 94/53
[2018-02-04] MEDS: LORazepam 2MG/ML-1ML VIAL IV PRN ×2 (17:06→21:49)
[2018-02-04 21:34] VITALS: BP 93/47
[2018-02-05] MEDS: LORazepam 2MG/ML-1ML VIAL IV PRN ×4 (01:26→21:27)
[2018-02-05 04:30] VITALS: BP 100/58
[2018-02-05 07:37] VITALS: BP 99/58
[2018-02-05] MEDS: HYDROmorphone HCL 2 MG/ML VL IV PRN (09:45)
[2018-02-05 11:55] VITALS: BP 110/60
[2018-02-05 16:14] LABS: Hepatitis B Core IgM Negative
[2018-02-05 16:26] VITALS: BP 118/66
[2018-02-05 21:56] VITALS: BP 92/53
[2018-02-06] MEDS: HYDROmorphone HCL 2 MG/ML VL IV PRN ×6 (01:01→23:30)
[2018-02-06 05:03] VITALS: BP 99/47
[2018-02-06 08:00] VITALS: BP 103/54
[2018-02-06 13:06] VITALS: BP 111/58
[2018-02-06 16:34] VITALS: BP 92/44
[2018-02-06 22:00] VITALS: BP 96/50
[2018-02-07] MEDS: HYDROmorphone HCL 2 MG/ML VL IV PRN ×7 (02:30→21:32)
[2018-02-07 05:00] VITALS: BP 102/58
[2018-02-07 09:00] VITALS: BP 93/56
[2018-02-07] MEDS: LORazepam 2MG/ML-1ML VIAL IV PRN (11:15)
[2018-02-07 13:00] VITALS: BP 89/56
[2018-02-07 16:41] VITALS: BP 92/79
[2018-02-07 22:08] VITALS: BP 84/46
[2018-02-08] MEDS: HYDROmorphone HCL 2 MG/ML VL IV PRN ×13 (00:45→23:54)
[2018-02-08 04:49] VITALS: BP 84/43
[2018-02-08 09:00] VITALS: BP 93/52
[2018-02-08] MEDS: MEPERIDINE HCL (50 MG/ML) 1 ML VIAL IV PRN ×4 (10:30→19:00)
[2018-02-08] MEDS: LORazepam 2MG/ML-1ML VIAL IV PRN ×2 (11:10→16:35)
[2018-02-08 13:00] VITALS: BP 91/50
[2018-02-08 17:00] VITALS: BP 85/49
[2018-02-08 22:00] VITALS: BP 92/46
[2018-02-09] VITALS: BP 68/35
[2018-02-09] MEDS: LORazepam 2MG/ML-1ML VIAL IV PRN ×3 (01:31→10:36)
[2018-02-09] MEDS: MEPERIDINE HCL (50 MG/ML) 1 ML VIAL IV PRN ×3 (01:31→10:36)
[2018-02-09] MEDS: HYDROmorphone HCL 2 MG/ML VL IV PRN ×4 (03:41→12:00)
[2018-02-09 05:00] VITALS: BP 76/39
[2018-02-09 09:00] VITALS: BP 80/42
[2018-02-09 12:00] VITALS: BP 81/37
[2018-02-09] MEDS ORDERED: HYDROmorphone HCL 2 MG/ML VL IV PRN (13:15)
== END 2018-02-09 17:07 | disposition expired | DRG 673 ==
LOC: ER 11:14 → TELE 11:15 → MERGE 11:15 → TELE-WESTW 15:23 → DOU IN ICU 01-29 12:36 → ICU WEST 01-30 15:41 → TELE-CENTR 02-03 06:13 → CENTRAL 02-03 06:18
PROVIDERS: ADMIT Internal Medicine; ATTEND Internal Medicine
PROC: 0JH63XZ Insertion of Tunneled Vascular Access Device into Chest Subcutaneous Tissue and Fascia, Percutaneous Approach (ICD-10-PCS; principal; 2018-01-29)
PROC: 02H633Z Insertion of Infusion Device into Right Atrium, Percutaneous Approach (ICD-10-PCS; 2018-01-29)
PROC: B2141ZZ Fluoroscopy of Right Heart using Low Osmolar Contrast (ICD-10-PCS; 2018-01-29)
PROC: 30233K1 Transfusion of Nonautologous Frozen Plasma into Peripheral Vein, Percutaneous Approach (ICD-10-PCS; 2018-01-29)
PROC: 30233N1 Transfusion of Nonautologous Red Blood Cells into Peripheral Vein, Percutaneous Approach (ICD-10-PCS; 2018-01-29)
PROC: 5A1D70Z Performance of Urinary Filtration, Intermittent, Less than 6 Hours Per Day (ICD-10-PCS; 2018-01-30)
PROC: 5A1D70Z Performance of Urinary Filtration, Intermittent, Less than 6 Hours Per Day (ICD-10-PCS; 2018-01-31)
PROC: 5A1D70Z Performance of Urinary Filtration, Intermittent, Less than 6 Hours Per Day (ICD-10-PCS; 2018-02-01)
DX: N17.0 Acute kidney failure with tubular necrosis (principal); K76.7 Hepatorenal syndrome; K85.90 Acute pancreatitis without necrosis or infection, unspecified; E43 Unspecified severe protein-calorie malnutrition; G93.41 Metabolic encephalopathy; J96.00 Acute respiratory failure, unspecified whether with hypoxia or hypercapnia; R65.10 Systemic inflammatory response syndrome (SIRS) of non-infectious origin without acute organ dysfunction; E87.1 Hypo-osmolality and hyponatremia; E87.2 Acidosis; K76.6 Portal hypertension; D68.9 Coagulation defect, unspecified; K92.2 Gastrointestinal hemorrhage, unspecified; D64.9 Anemia, unspecified; D69.6 Thrombocytopenia, unspecified; E87.6 Hypokalemia; E87.70 Fluid overload, unspecified; K52.9 Noninfective gastroenteritis and colitis, unspecified; K70.31 Alcoholic cirrhosis of liver with ascites; K70.40 Alcoholic hepatic failure without coma; K80.20 Calculus of gallbladder without cholecystitis without obstruction; E66.01 Morbid (severe) obesity due to excess calories; R16.2 Hepatomegaly with splenomegaly, not elsewhere classified; Z51.5 Encounter for palliative care; Z66 Do not resuscitate; Z68.37 Body mass index [BMI] 37.0-37.9, adult; Z88.0 Allergy status to penicillin
CPT/HCPCS: 36415; 71045; 74176; 76700; 76937; 80048; 80053; 80061; 80074; 80320; 81001; 82140; 82150; 82247; 82248; 82270; 82306; 82378; 82570; 83690; 83735; 84132; 84133; 84300; 85014; 85018; 85025; 85045; 85610; 85652; 85730; 86141; 86850; 86900; 86901; 86920; 87045; 87081; 87086; 87899; 90935; 93005; 93306; 96361; 96365; 96375; 99152; A6257; C9113; G0378; J0696; J0885; J1200; J1642; J2250; J3480; J3490; J7060; P9047